=== PATIENT | male | born 1945 | race Caucasian/White ===

== ENCOUNTER → 2017-07-19 | Outpatient (CLI) | payer MEDICARE ==
--- NOTE | 2017-07-22 10:15 | Diagnostic Imaging Report ---
EXAMINATION: MRI of the brain without contrast. HISTORY: Abnormality of gait, dizziness, memory problems COMPARISON: None. TECHNIQUE: Sagittal T2; axial DWI, T2, FLAIR, T1-IR, T2 gradient echo; coronal FLAIR. IMAGE QUALITY: Adequate. FINDINGS: Parenchyma: 1. Few scattered and periventricular matter T2 and FLAIR hyperintense foci, most likely nonspecific chronic microvascular ischemic changes. 2. Slight increase GRE Hypointense signal within the lentiform nucleus, which may be related to mild bilateral accumulation, only the appropriate clinical setting. 3. No mass, hemorrhage, acute or chronic infarcts. Skull: Unremarkable. Vessels: Expected flow voids present in the major arteries and dural sinuses. Extra-axial spaces: No abnormal signal intensity or mass effect. Brain volume: Slightly disproportionate right greater than left medial temporal/hippocampal most. Otherwise mild age-appropriate generalized brain volume loss, no disproportionate lobar, brain stem or cerebellar atrophy. Ventricles: No hydrocephalus or displacement. Foramen magnum: Unremarkable. Sella: Unremarkable. Paranasal / mastoid sinuses: No significant inflammatory disease. IMPRESSION: 1. Mild generalized brain volume loss. Minimal right greater than left hippocampal predominance. 2. Mild nonspecific white matter chronic vascular ischemic changes. Signed by: Dr. Bhavana Scales M.D. on 07/22/2017 10:11 AM
== END ==
LOC: MRI 15:05
PROVIDERS: ATTEND Family Medicine
DX: R41.3 Other amnesia (principal); R26.9 Unspecified abnormalities of gait and mobility
CPT/HCPCS: 70551